=== PATIENT | female | born 1955 | race Caucasian/White ===

== ENCOUNTER → 2016-11-04 | Outpatient (CLI) | payer OTHER ==
--- NOTE | 2016-11-04 13:56 | MA ---
Screening Digital Mammogram With Tomosynthesis Clinical Indications: Routine screening. Mother with breast cancer at age 72. Maternal aunt with tammy st cancer in 70s. Paternal grandmother with breast cancer in 70s. Technique: Standard digital cephalocaudal and tomosynthesis mediolateral oblique projections were ob tained. The digital images were processed by the [employer] computer aided detection system. Comparison: October 2015, September 2014 and August 2013. Breast density: D; The breast tissue is extremely dense. This may lower the sensitivity of mammograph y. Findings: CAD was reviewed. No suspicious findings are identified. Impression: Negative mammogram. BI-RADS 1. Recommendation: Routine screening is recommended in one year, as long as physical examination is taqueria ign in this patient with moderately dense breast parenchyma. [facility] will send a result letter to the patient. Negative mammography should not preclude additional workup of a clinically suspicious finding. The patient's information is entered into a reminder system with a target due date for her next mammo gram. 3
== END ==
LOC: FIMAGING 13:01
DX: Z12.31 Encounter for screening mammogram for malignant neoplasm of breast (principal); Z80.3 Family history of malignant neoplasm of breast
CPT/HCPCS: G0202

== ENCOUNTER → 2016-12-14 | Outpatient (CLI) | payer OTHER | LOC: FIMAGING 10:37 | PROVIDERS: ATTEND Obstetrics & Gynecology Gynecology | DX: R10.2 Pelvic and perineal pain (principal); N83.201 Unspecified ovarian cyst, right side ==

== ENCOUNTER 2017-10-08 10:41 | Emergency (ER) | payer OTHER ==
--- NOTE | 2017-10-08 11:10 | EDPHY ---
H & P Time Seen by Provider: 10/08/17 10:53 HPI/ROS: CHIEF COMPLAINT: Left hand pain HISTORY OF PRESENT ILLNESS: 62-year-old female presents with left hand pain. She slipped and fell 2 days ago and landed on her outstretched hand. No hand pain initially. Gradually increasing left hand pain few hours after the incident. The pain is located on the palmar aspect of her hand. No wrist or finger pain. No other injuries or symptoms. ROS: No numbness, weakness, bleeding, syncopal episode, other injury. Past Medical/Surgical History: Denies Smoking Status: Former smoker Physical Exam: Alert and oriented, pleasant Extremities: Left hand-tenderness over the proximal 3rd and 4th metacarpals, no swelling, no snuffbox tenderness, range of motion of digits and wrist without pain Skin: Intact, no ecchymosis Neuro: Motor and sensory intact Vascular: Capillary refill brisk distally. Constitutional: Initial Vital Signs Temperature (C) 36.2 C 10/08/17 10:44 Heart Rate 75 10/08/17 10:44 Respiratory Rate 17 10/08/17 10:44 Blood Pressure 146/90 H 10/08/17 10:44 O2 Sat (%) 100 10/08/17 10:44 O2 Delivery Mode Room Air Allergies/Adverse Reactions: No Known Allergies Allergy (Verified 10/08/17 10:44) Home Medications: Medication Instructions Recorded Klonopin 08/18/13 Levocetirizine Dihydrochloride 08/18/13 Medical Decision Making - Diagnostics Imaging Results: Hand X-Ray 10/08/17 10:54 Impression: Dorsal triquetral avulsion. ED Course/Re-evaluation: Xray results d/w pt. Placed in a velcro wrist splint. Neurovasc intact after application. Will f/u with hand surgery. Departure - Departure Disposition: Home, Routine, Self-Care Clinical Impression: Triquetral chip fracture Condition: Good Instructions: Wrist Fracture in Adults (ED) Additional Instructions: Take Tylenol 650 mg every 4 hr as needed for pain. Referrals: Shalonda Delgado NP [Primary Care Provider] - As per Instructions Mateo Jeffery MD [Medical Doctor] - As per Instructions (Call to make an appointment.)
[2017-10-08 12:01] VITALS: BP 128/76; PULSE 70; RESP 14; TEMP 97.9; O2SAT 98
== END 2017-10-08 12:00 | disposition home or self-care (01) ==
DX: S62.112A Displaced fracture of triquetrum [cuneiform] bone, left wrist, initial encounter for closed fracture (principal); Z87.891 Personal history of nicotine dependence; W01.0XXA Fall on same level from slipping, tripping and stumbling without subsequent striking against object, initial encounter
CPT/HCPCS: L3908

== ENCOUNTER → 2017-11-30 | Outpatient (CLI) | payer OTHER | LOC: FIMAGING 11:51 | PROVIDERS: ATTEND Nurse Practitioner Adult Health | DX: Z12.31 Encounter for screening mammogram for malignant neoplasm of breast (principal); Z80.3 Family history of malignant neoplasm of breast ==

== ENCOUNTER → 2017-12-08 | Outpatient (CLI) | payer OTHER | LOC: BMCIMAGING 15:10 | PROVIDERS: ATTEND Obstetrics & Gynecology Gynecology | DX: N83.201 Unspecified ovarian cyst, right side (principal) ==

== ENCOUNTER 2017-12-18 11:20 | Emergency (ER) | payer OTHER ==
[2017-12-18] MEDS ORDERED: NS 500 ML IV ONE (13:20)
--- NOTE | 2017-12-18 13:20 | EDPHY ---
H & P Time Seen by Provider: 12/18/17 12:57 HPI/ROS: CHIEF COMPLAINT: Abdominal bloating, abdominal pain HISTORY OF PRESENT ILLNESS: Patient is a 62-year-old female who presents emergency department with abdominal bloating and discomfort. She states her symptoms started 3 weeks ago. She started to notice abdominal bloating. It started in the epigastrium and then moved to her lower abdomen. She saw her health information manager, Dr. Keita. Per report she had the pelvic ultrasound completed. The patient had urinary studies sent. The initial test was reported as negative however the culture came back positive with E coli. She is currently taking Macrobid. She was placed on Macrobid initially for 3 days but the patient did not feel this was enough and she requested 3 extra days. She continues to have abdominal bloating. At this time she describes diffuse bloating. She has mild discomfort in her epigastrium. No nausea or vomiting. No diarrhea. No change in her bowel habits. No xzhi-[id number]-[id number] medications. No change in diet. No fevers or chills. REVIEW OF SYSTEMS: My complete review of systems is negative except as mentioned in the HPI. Past Medical/Surgical History: Esophageal spasms, urinary tract infection Past surgical history: Noncontributory Social history: Patient drinks occasionally. She does not use drugs or smoke. Smoking Status: Former smoker Physical Exam: 36.5, 131/97, 82, 18, 98% on room air GENERAL: Well-appearing, in no acute distress, alert. HEENT: Eyes normal to inspection, normal pharynx, no signs of dehydration. NECK: No thyromegaly, no lymphadenopathy, supple. RESPIRATORY: Clear to auscultation bilaterally, no rales, rhonchi or wheezing. CVS: Regular rate and rhythm, no rubs, murmurs, or gallops. ABDOMEN: Soft, mild epigastric tenderness to palpation with no rebound or guarding, no organomegaly. The patient does not appear distended on exam. However the patient states that she is very distended at this time. BACK: Normal to inspection, no CVA tenderness. SKIN: Normal color, no rash, warm, dry. No pallor. EXTREMITIES: No pedal edema, no calf tenderness, no Homans sign or cords, no joint swelling. NEURO/PSYCH: Alert and oriented x3, normal mood and affect, normal motor sensory exam. Constitutional: Initial Vital Signs Temperature (C) 36.5 C 12/18/17 11:44 Heart Rate 82 12/18/17 11:44 Respiratory Rate 18 12/18/17 11:44 Blood Pressure 131/97 H 12/18/17 11:44 O2 Sat (%) 98 12/18/17 11:44 O2 Delivery Mode Room Air Allergies/Adverse Reactions: No Known Allergies Allergy (Verified 12/18/17 11:44) Home Medications: Medication Instructions Recorded Klonopin 08/18/13 Levocetirizine Dihydrochloride 08/18/13 Macrobid 12/18/17 Medical Decision Making - Diagnostics Imaging Results: Imaging Impressions Abdomen CT 12/18/17 14:22 Impression: 1. Moderate constipation. 2. No significantly dilated loops of bowel or abnormal fluid collections. 3. Incidental follicular cyst right adnexa. 4. Moderate disk bulge at L4-L5 with associated moderate to severe spinal stenosis. Findings discussed with Imelda Desai M.D. at 15:27 hour, 12/18/2017. ED Course/Re-evaluation: In the emergency department I discussed possible etiologies with the patient. I answered all her questions. IV was placed. Laboratory studies were obtained. I reviewed the patient's previous lab results. She had a CBC which was normal on 12/14/2017. Her previous urine culture was positive for E coli. It is sensitive to Macrobid. Patient was given Toradol 30 mg IV for her abdominal cramping and discomfort Her UA today is positive for leuk esterase and trace bacteria. LFTs in chemistry were normal. Initial CBC was rejected. Repeat was sent to the lab. Urine showed +1 leuk esterase and trace bacteria. CBC was normal. I rechecked the patient. The patient is still concerned that she has bloating. She is really adamant about wanting imaging studies. She requests CT scan. I discussed the pros and cons of this. A CT scan was ordered. CT with IV contrast: Please refer the dictated report by Dr. Hernandez. The patient has constipation. No other acute abnormality. 15 30: I discussed the results with the patient. I answered all her questions. On repeat exam she stated she was feeling better. She is given warnings prior to leaving. She will follow up with Dr. Arguelles. Differential Diagnosis: My differential includes but is not limited to urinary tract infection, pyelonephritis, bacteremia, sepsis, small-bowel obstruction, perforation, cholecystitis, cholangitis, pancreatitis, volvulus, intussusception - Data Points Laboratory Results: Laboratory Results 12/18/17 14:24 12/18/17 12:30 12/18/17 12/18/17 12/18/17 14:24 12:30 12:30 WBC 4.87 10^3/uL 10^3/uL REJ (3.80-9.50) RBC 4.58 10^6/uL 10^6/uL REJ (4.18-5.33) Hgb 14.4 g/dL g/dL REJ (12.6-16.3) Hct 43.2 % % REJ (38.0-47.0) MCV 94.3 fL fL REJ (81.5-99.8) MCH 31.4 pg pg REJ (27.9-34.1) MCHC 33.3 g/dL g/dL REJ (32.4-36.7) RDW 12.7 % % REJ (11.5-15.2) Plt Count 214 10^3/uL 10^3/uL REJ (150-400) MPV 9.8 fL fL REJ (8.7-11.7) Neut % (Auto) 44.9 % % REJ (39.3-74.2) Lymph % (Auto) 40.2 % % REJ (15.0-45.0) Emanuel % (Auto) 9.9 % % REJ (4.5-13.0) Eos % (Auto) 2.3 % % REJ (0.6-7.6) Baso % (Auto) 2.3 % H % REJ (0.3-1.7) Nucleat RBC Rel Count 0.0 % % REJ (0.0-0.2) Absolute Neuts (auto) 2.19 10^3/uL 10^3/uL REJ (1.70-6.50) Absolute Lymphs (auto) 1.96 10^3/uL 10^3/uL REJ (1.00-3.00) Absolute Monos (auto) 0.48 10^3/uL 10^3/uL REJ (0.30-0.80) Absolute Eos (auto) 0.11 10^3/uL 10^3/uL REJ (0.03-0.40) Absolute Basos (auto) 0.11 10^3/uL H 10^3/uL REJ (0.02-0.10) Absolute Nucleated RBC 0.00 10^3/uL 10^3/uL REJ (0-0.01) Immature Gran % 0.4 % % REJ (0.0-1.1) Immature Gran # 0.02 10^3/uL 10^3/uL REJ (0.00-0.10) Sodium 144 mEq/L mEq/L (135-145) Potassium 4.5 mEq/L mEq/L (3.5-5.2) Chloride 104 mEq/L mEq/L (97-110) Carbon Dioxide 29 mEq/l mEq/l (22-31) Anion Gap 11 mEq/L mEq/L (8-16) BUN 20 mg/dL mg/dL (7-23) Creatinine 0.7 mg/dL mg/dL (0.6-1.0) Estimated GFR > 60 Glucose 82 mg/dL mg/dL (70-100) Calcium 9.9 mg/dL mg/dL (8.5-10.4) Total Bilirubin 0.5 mg/dL mg/dL (0.1-1.4) Conjugated Bilirubin 0.2 mg/dL mg/dL (0.0-0.5) Unconjugated Bilirubin 0.3 mg/dL mg/dL (0.0-1.1) AST 30 IU/L IU/L (14-46) ALT 40 IU/L IU/L (9-52) Alkaline Phosphatase 89 IU/L IU/L (38-126) Total Protein 7.4 g/dL g/dL (6.3-8.2) Albumin 4.5 g/dL g/dL (3.5-5.0) Lipase 296 IU/L IU/L (23-300) Urine Color Urine Appearance Urine pH Ur Specific [place] Urine Protein Urine Ketones Urine Blood Urine Nitrate Urine Bilirubin Urine Urobilinogen Ur Leukocyte Esterase Urine RBC Urine WBC Ur Epithelial Cells Urine Bacteria Urine Glucose 12/18/17 11:50 WBC RBC Hgb Hct MCV MCH MCHC RDW Plt Count MPV Neut % (Auto) Lymph % (Auto) Emanuel % (Auto) Eos % (Auto) Baso % (Auto) Nucleat RBC Rel Count Absolute Neuts (auto) Absolute Lymphs (auto) Absolute Monos (auto) Absolute Eos (auto) Absolute Basos (auto) Absolute Nucleated RBC Immature Gran % Immature Gran # Sodium Potassium Chloride Carbon Dioxide Anion Gap BUN Creatinine Estimated GFR Glucose Calcium Total Bilirubin Conjugated Bilirubin Unconjugated Bilirubin AST ALT Alkaline Phosphatase Total Protein Albumin Lipase Urine Color PALE YELLOW Urine Appearance CLEAR Urine pH 7.0 (5.0-7.5) Ur Specific [place] 1.003 (1.002-1.030) Urine Protein NEGATIVE (NEGATIVE) Urine Ketones NEGATIVE (NEGATIVE) Urine Blood NEGATIVE (NEGATIVE) Urine Nitrate NEGATIVE (NEGATIVE) Urine Bilirubin NEGATIVE (NEGATIVE) Urine Urobilinogen NEGATIVE EU EU (0.2-1.0) Ur Leukocyte Esterase 1+ H (NEGATIVE) Urine RBC 1-3 /hpf /hpf (0-3) Urine WBC 1-3 /hpf /hpf (0-3) Ur Epithelial Cells TRACE /lpf /lpf (NONE-1+) Urine Bacteria TRACE /hpf H /hpf (NONE SEEN) Urine Glucose NEGATIVE (NEGATIVE) Medications Given: Discontinued Medications Sodium Chloride (Ns) 500 mls @ 0 mls/hr IV EDNOW ONE; Wide Open PRN Reason: Protocol Stop: 12/18/17 13:21 Last Admin: 12/18/17 13:33 Dose: 500 mls Famotidine/Sodium Chloride (Pepcid 20 Mg (Premix)) 50 mls @ 200 mls/hr IV EDNOW ONE Stop: 12/18/17 13:35 Last Admin: 12/18/17 13:29 Dose: 50 mls Ketorolac Tromethamine (Toradol) 30 mg IVP EDNOW ONE Stop: 12/18/17 13:22 Last Admin: 12/18/17 13:32 Dose: 30 mg Departure - Departure Disposition: Home, Routine, Self-Care Clinical Impression: Abdominal pain Qualifiers: Abdominal location: epigastric Qualified Code(s): R10.13 - Epigastric pain Constipation Qualifiers: Constipation type: unspecified constipation type Qualified Code(s): K59.00 - Constipation, unspecified Condition: Good Instructions: Acute Abdominal Pain (ED) Additional Instructions: Your CT scan showed constipation. No other acute abnormality was noted by the radiologist. You need close follow-up with Dr. Arguelles. Return with increasing pain, vomiting or any other concerns. Referrals: Nicolette Pedro MD [Primary Care Provider] - 2-3 days, call for appt. Trevon Arguelles MD [Medical Doctor] - 5-7 days, call for appt.
[2017-12-18] MEDS ORDERED: KETOROLAC 30 MG/1 ML SDV IVP ONE (13:21)
[2017-12-18] MEDS ORDERED: FAMOTIDINE 20 MG/NACL 50 ML IV ONE (13:21)
[2017-12-18 14:30] LABS: PLATELET COUNT 214 10^3/uL (150-400)
[2017-12-18] MEDS ORDERED: IOPAMIDOL (ISOVUE-300) 100 ML BTL ONE (14:31)
[2017-12-18 16:04] VITALS: BP 133/65; PULSE 72; RESP 18; TEMP 98.1; O2SAT 98
== END 2017-12-18 16:02 | disposition home or self-care (01) ==
DX: K59.00 Constipation, unspecified (principal); E86.9 Volume depletion, unspecified; Z87.891 Personal history of nicotine dependence
CPT/HCPCS: 96374; J1885; Q9967

== ENCOUNTER → 2018-06-03 | Outpatient (CLI) | payer OTHER | LOC: FIMAGING 13:15 | PROVIDERS: ATTEND Physician Assistant | DX: N64.4 Mastodynia (principal) ==

== ENCOUNTER 2018-10-22 10:56 | Emergency (ER) | payer OTHER ==
--- NOTE | 2018-10-22 12:21 | EDPHY ---
General Time Seen by Provider: 10/22/18 11:21 Narrative: CLINICAL IMPRESSION: Closed head injury with mild concussion, right forehead contusion ASSESSMENT/PLAN: A 63-year-old female presents to the emergency department after she slipped on the ice and fell forward striking her right forehead on the corner of the curb between the sidewalk and Street. There was no loss of consciousness, no antegrade or retrograde amnesia, dizziness, vertigo, acute vision or hearing change. She is not anticoagulated. She reports no headache initially but later developed a mild headache. No associated neck pain, upper extremity weakness or numbness. She has had a prior craniotomy secondary to a benign meningioma repair and is mostly concerned by a dent in the forehead that she felt immediately after the fall. CT scan read by Radiology with no evidence of acute intracranial abnormality. Patient does have a well-healed, well- positioned bone flap over the area of trauma. There is no acute abnormality identified. 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 Warning signs return to ED sooner outlined and discharge. DIFFERENTIAL DX: Differential diagnosis for headache includes but not limited to concussion, post concussive syndrome, skull fracture, subarachnoid hemorrhage, migraine headache, migraine varient headache, tension headache and infectious causes such as meningitis, pharyngitis and sinusitis. ED PROCEDURES: See lab and/or imaging results below ED COURSE: 12:15 p.m.: Case discussed with Dr. Koenig from Radiology. Patient appears to have an old, healed, well positioned bone flap from previous craniotomy over the site of the"dent"that she is feeling. There is no acute fracture of the skull or intracranial bleeding. Results discussed with the patient. Long discussion regarding concussion and post concussive syndrome. Return to play protocol outlined and discharge. CHIEF COMPLAINT: Ground level fall with closed head injury HPI: 63-year-old female presents to the emergency department after she slipped on the ice while walking on the sidewalk, fell forward and struck the right forehead on the corner between the curb and Street. She reports no loss of consciousness, no antegrade or retrograde amnesia. She has no headache or complaints of dizziness or vertigo. She is not anticoagulated. No acute vision or hearing change. She reports a past history of craniotomy for benign meningioma removal many years ago. She has no reports of neck pain, upper extremity numbness or weakness. Her is currently in the ICU and she admits to significant stress ] PAST MEDICAL HISTORY: Benign meningioma See nurse/triage notes for additional history if applicable Pertinent Past Surgical History: Craniotomy Family History: None reported Social History: , not anticoagulated, otherwise healthy REVIEW OF SYSTEMS: All other systems negative Constitutional: No fever, no chills, appetite change. Eyes: No discharge, vision change ENT: No sore throat, congestion, ear pain. Cardiovascular: No chest pain, no palpitations. Respiratory: No cough, no shortness of breath. Gastrointestinal: No abdominal pain, no vomiting, diarrhea. Musculoskeletal: No back pain, joint swelling, joint pain, myalgias. Skin: No rashes, color change. Neurological: No headache, dizziness, weakness. PHYSICAL EXAM: General Appearance: Alert, oriented, appropriate, cooperative, NAD, pleasant, well hydrated, non-toxic appearing, VSS, no hypoxia. HEENT: TMs are clear bilaterally no perforation or FB, no injection, no evidence of serous or mucopurulent otitis. No hemotympanum, Justice sign. Contusion with superficial abrasion noted to right upper lateral forehead. No obvious depressed skull fracture or deformity appreciated. Oropharynx clear is no erythema or exudates, no tonsillar hypertrophy or asymmetry. Dentition without abnormality. Eyes: PERRLA, no acute vision change, nystagmus, swelling, discharge, pain or photosensitivity. Conjunctiva pink, no pallor or injection Neck: Supple, nontender, no lymphadenopathy, no midline pain, FROM, no meningismus. Ic Design Engineer strength 5/5 bilaterally Respiratory: There are no retractions, lungs are clear to auscultation. No rib pain or anterior chest wall pain Cardiac: Regular rate and rhythm, no murmurs or gallops. Gastrointestinal: Abdomen is soft, nontender, bowel sounds normal, no masses/ hernia, no rigidity, guarding or focal peritoneal findings. Neurological: Alert and oriented x 3, CN 2-12 grossly intact, normal gait no ataxia, DTR's intact, normal sensation and strength Skin: Warm, dry, no rashes, no nodules on palpation. Musculoskeletal: Extremities are symmetrical, full range of motion, no tenderness, deformity, swelling, or erythema. MEDICAL DECISION MAKING: Patient was seen independently. Secondary supervising physician at time of evaluation was Dr. Parry. Diagnosis: Closed head injury, forehead contusion. New, requires workup Summary: See Assessment and Plan for summary of ED visit Independent visualization of images, tracing, or specimens: Yes. Decision to obtain medical records or history from someone other than the patient: No Review / Summarize previous medical records: None available Discussed patient with another provider: Dr. Koenig Patient Progress: Improved. - Diagnostics Imaging Results: Imaging Impressions Head CT 10/22/18 11:31 Impression: Negative noncontrast CT of the head with no intracranial posttraumatic sequela identified. Results discussed with Braydon Multani at 12:17 PM. General information for patients regarding this examination can be found at [email or web address]. If you have questions or comments about this report, please contact me at (hospital) or [phone] (cell). - History Smoking Status: Former smoker - Objective Vital Signs: Initial Vital Signs Temperature (C) 36.6 C 10/22/18 10:59 Heart Rate 76 10/22/18 10:59 Respiratory Rate 18 10/22/18 10:59 Blood Pressure 155/87 H 10/22/18 10:59 O2 Sat (%) 99 10/22/18 10:59 O2 Delivery Mode Room Air Allergies/Adverse Reactions: No Known Allergies Allergy (Verified 12/18/17 11:44) Home Medications: Medication Instructions Recorded Klonopin 08/18/13 Levocetirizine Dihydrochloride 08/18/13 Medications Given: Discontinued Medications Acetaminophen (Tylenol) 1,000 mg PO EDNOW ONE Stop: 10/22/18 12:39 Last Admin: 10/22/18 12:44 Dose: 1,000 mg Departure - Departure Disposition: Home, Routine, Self-Care Clinical Impression: Closed head injury with concussion Qualifiers: Encounter type: initial encounter Loss of consciousness presence/duration: without LOC Qualified Code(s): S06.0X0A - Concussion without loss of consciousness, initial encounter Condition: Fair Instructions: Head Injury (ED) Additional Instructions: DISCHARGE INSTRUCTIONS FROM YOUR DOCTOR Thank you for visiting our emergency department today. Please keep in mind that discharge from the emergency department does not mean that there is nothing wrong - it simply means that we have not identified an emergency condition that requires further evaluation or treatment in the hospital. You should always plan to follow up with primary care for re-evaluation of your condition in the next 2-3 days. If you have been referred to a specialist, please call as soon as possible (today or tomorrow) to schedule your follow up appointment at the appropriate time. OUR RADIOLOGIST READ YOUR CT SCAN SHOWING NO EVIDENCE OF ACUTE SKULL FRACTURE OR INTRACRANIAL BLEEDING. YOU HAVE AN OLD, HEALED, WELL POSITIONED BONE FLAP OVER THE SITE OF SWELLING TODAY. THIS DOES NOT APPEAR TO BE SHIFTED OR ACUTELY INJURED. YOU ARE BEING DIAGNOSED WITH A MILD CONCUSSION. PLEASE FOLLOWUP WITH A PRIMARY CARE DOCTOR IN 24-48 HOURS. IF YOU DO NOT HAVE A PRIMARY CARE, A REFERRAL WAS GIVEN TONIGHT. PLEASE AVOID TV, COMPUTERS, TEXTING, VIDEO GAMES, SCREEN TIME AND CONTACT SPORTS UNTIL YOU ARE CLEARED BY A PRIMARY CARE. WE HAVE ALSO INCLUDED OUR GRADUAL RETURN TO PLAY PROTOCOL A GUIDELINE BUT DEFINITIVE RETURN TO ABOVE MENTIONED ACTIVITIES SHOULD COME FROM YOUR PCP. RETURN TO THE ER SOONER FOR WORSENING OR SEVERE HEADACHES, SEIZURES, ALTERED MENTAL STATUS, VOMITING, SEVERE GRADUAL [id number] PROTOCOL PATIENT MUST BE SYMPTOM FREE FOR 24 HOURS BEFORE PROGRESSING TO THE NEXT STEP. IF PATIENT HAS SYMPTOMS DURING STEP'S 2-6, STOP ACTIVITY AND RETURN PREVIOUS STEP. PATIENT CAN NOT PROGRESS TO NEXT STEP UNLESS CURRENT STEP CAN BE COMPLETED WITH OUT ANY SYMPTOMS (IE HEADACHE, DIZZINESS, CONFUSION...) BRIGHT LIGHTS, TV, COMPUTERS, IPAD'S, MUSIC, READING CAN TRIGGER OR WORSEN CONCUSSION SYMPTOMS THUS SHOULD BE AVOIDED OR USED IN MODERATION. NO CONTACT SPORTS UNTIL YOU ARE CLEARED BY YOUR PRIMARY CARE PHYSICIAN. STEP 1. NO SAME DAY RETURN TO PLAY, REST ONLY , DO NOT PROCEED TO STEP 2 UNTIL ALL SYMPTOMS HAVE RESOLVED STEP 2. LIGHT AEROBIC EXERCISE (IE WALKING, SWIMMING OR STATIONARY CYCLING), WHILE KEEPING INTENSITY < 70% MAX HEART RATE STEP 3. SPORT-SPECIFIC EXERCISE (IE SKATING DRILLS IN ICE HOCKEY-NO PASSING, RUNNING DRILLS IN SOCCER-NO PASSING), NO HEAD IMPACT ACTIVITIES STEP 4. NON-CONTACT TRAINING, WITH PROGRESSION TO MORE COMPLEX DRILLS (IE PASSING DRILLS) NO HEAD IMPACT ACTIVITIES STEP 5. FULL-CONTACT PRACTICE AFTER GETTING MEDICAL CLEARANCE STEP 6. RETURN TO GAME PLAY THIS WAS BASED FROM: CONSENSUS STATEMENT ON CONCUSSION IN SPORT: THE 4TH INTERNATIONAL CONFERENCE ON CONCUSSION IN SPORT HELD IN [place], AUG 2012. BR J SPORTS MED. 2013;47(5):250- 258 People present with illnesses and injuries in different ways, and it is always possible that we have missed something. You may always return for re-evaluation if symptoms worsen or if they are not improving or if you develop new/different symptoms. Again, thank you for choosing our emergency department. We hope that you feel better. Referrals: Shalonda Delgado NP [Primary Care Provider] - 1-2 days without fail
[2018-10-22] MEDS ORDERED: ACETAMINOPHEN 500 MG TAB PO ONE (12:38)
[2018-10-22 12:50] VITALS: BP 157/94
== END 2018-10-22 12:50 | disposition home or self-care (01) ==
DX: S06.0X0A Concussion without loss of consciousness, initial encounter (principal); W00.0XXA Fall on same level due to ice and snow, initial encounter; Y92.9 Unspecified place or not applicable; Y99.9 Unspecified external cause status; Y93.9 Activity, unspecified

== ENCOUNTER → 2018-12-12 | Outpatient (CLI) | payer OTHER | LOC: FIMAGING 13:02 | PROVIDERS: ATTEND Nurse Practitioner Adult Health | DX: Z12.31 Encounter for screening mammogram for malignant neoplasm of breast (principal) ==

== ENCOUNTER → 2018-12-26 | Outpatient (CLI) | payer OTHER | LOC: FIMAGING 12:43 | PROVIDERS: ATTEND Obstetrics & Gynecology Gynecology | DX: N83.201 Unspecified ovarian cyst, right side (principal) ==

== ENCOUNTER → 2019-01-24 | Outpatient (CLI) | payer OTHER ==
[~2019-01-24] MED LIST: REGADENOSON 0.4 MG/5 ML SYR IVP ONE
== END ==
LOC: FIMAGING 11:26
PROVIDERS: ATTEND Orthopaedic Surgery
DX: M25.552 Pain in left hip (principal)
CPT/HCPCS: 78315; A9503; J2785

== ENCOUNTER → 2019-02-08 | Outpatient (CLI) | payer OTHER | LOC: FIMAGING 12:52 | PROVIDERS: ATTEND Orthopaedic Surgery | DX: Z09 Encounter for follow-up examination after completed treatment for conditions other than malignant neoplasm (principal); Z96.642 Presence of left artificial hip joint ==